=== PATIENT | female | born 1955 | race Caucasian/White ===

== ENCOUNTER 2019-01-06 14:50 | Inpatient (IN) ==
[2019-01-06 15:25] LABS: BLOOD TYPE ARTERIAL; SAMPLE BLOOD
[2019-01-06 15:26] LABS: HCO3-(ACT) 29.5 mmoll (20.0-26.0); METHB 1.3 % (0.0-1.5); O2(CT) 12.9 mL/dL (15.0-23.0); O2HB 90.6 % (95.0-99.0); PO2(98.6) 59 mmHg (60-100); THB 10.1 g/dL (11.5-17.4); pH(98.6) 7.37 (7.35-7.45)
[2019-01-06 15:27] LABS: MODALITY CANNULA
[2019-01-06 15:28] LABS: ALLEN TEST YES
[2019-01-06 15:30] LABS: PCO2(98.6) 56 mmHg (35-45)
[2019-01-06 16:39] LABS: BASO# 0.06 X1000 (0.0-0.2); BASO% 0.8 % (0.0-0.8); EOS# 0.67 X1000 (0.0-0.7); EOS% 9.2 % (0.0-10.0); HEMATOCRIT 36.1 % (37.0-47.0); HEMOGLOBIN 11.1 g/dL (12.0-16.0); IMM GRAN# 0.02 X1000 (0.0-0.04); IMM GRAN% 0.3 % (0.0-0.5); LYMPH# 2.82 X1000 (1.2-3.4); LYMPH% 38.5 % (20.5-51.1); MCH 28.7 PG (27-31); MCHC 30.7 g/dL (33-37); MCV 93.3 FL (81-99); MONO# 1.18 X1000 (0.11-0.59); MONO% 16.1 % (1.7-9.3); MPV 11.7 FL (7.4-10.4); NEUT# 2.57 X1000 (1.4-6.5); NEUT% 35.1 % (42.2-75.2); PLT 219 X1000 (130-400); RBC 3.87 XMIL (4.2-5.4); RDW 14.3 % (11.5-14.5); WBC 7.32 X1000 (4.8-10.8)
[2019-01-06] MEDS ORDERED: DUONEB (A & A) INH ONE (16:39)
[2019-01-06 17:01] LABS: BILIRUBIN URINE NEGATIVE (NEGATIVE); BLOOD URINE NEGATIVE (NEGATIVE); GLUCOSE URINE NEGATIVE (NEGATIVE); KETONE URINE TRACE mg/dL (NEGATIVE); LEUKOCYTES URINE TRACE (NEGATIVE); NITRITE URINE NEGATIVE (NEGATIVE); PROTEIN URINE TRACE mg/dL (NEGATIVE); SP GRAVITY URINE 1.025; UROBILINOGEN URINE NORMAL
[2019-01-06 17:02] LABS: CLARITY CLEAR (CLEAR); COLOR YELLOW
[2019-01-06 17:06] LABS: UR AMPHETAMINES QUAL NONE DETECTED (NONE DETECT); UR BARBITUATES QUAL NONE DETECTED (NONE DETECT); UR BENZODIAZEPIN QUAL PRESUMPTIVE POSITIVE (NONE DETECT); UR COCAINE QUAL NONE DETECTED (NONE DETECT); UR METHADONE QUAL NONE DETECTED (NONE DETECT); UR METHAMPHETAMINE QUAL NONE DETECTED (NONE DETECT); UR OPIATES QUAL NONE DETECTED (NONE DETECT); UR OXYCODONE QUAL NONE DETECTED (NONE DETECT); UR PCP QUAL PRESUMPTIVE POSITIVE (NONE DETECT); UR PROPOXYPHENE QUAL NONE DETECTED (NONE DETECT)
[2019-01-06 17:07] LABS: UR CANNABINOIDS QUAL NONE DETECTED (NONE DETECT); UR TCA QUAL NONE DETECTED (NONE DETECT)
--- NOTE | 2019-01-06 17:16 | Diag Imaging Result Doc PS360 ---
EXAM: CT HEAD W/O CONTRAST HISTORY: ams TECHNIQUE: Images were obtained from the skull base to vertex without IV contrast as per standard protocol. COMPARISON: 10/08/2018 FINDINGS: There is no evidence for hemorrhage, hydrocephalus, mass effect, or fluid collection. There is encephalomalacia left occipital lobe and right cerebellar hemisphere. There is cerebral atrophy. IMPRESSION: Stable encephalomalacia. Mild cerebral atrophy. No acute abnormality. This exam was performed using automated exposure control, adjustment of mA or kV according to patient size, and/or use of iterative reconstruction technique. Electronically signed by Sally Villegas 01/06/2019 5:13 PM
[2019-01-06 17:17] LABS: AGAP 13; ALBUMIN 3.8 g/dL (3.5-5.0); ALKALINE PHOSPHATASE 146 U/L (32-104); BUN 7 mg/dL (8-22); CHLORIDE 103 mmol/L (98-107); COSMO 276; CREATININE 0.6 mg/dL (0.5-0.9); ESTIMATED GFR > 60; GLUCOSE 81 mg/dL (70-104); GOT 33 U/L (10-30); GPT 28 U/L (10-36); MAGNESIUM 1.5 mg/dL (1.5-2.7); POTASSIUM 4.9 mmol/L (3.5-5.1); SODIUM 140 mmol/L (136-145); TCO2 25 mmol/L (25-35); TOTAL PROTEIN 6.4 g/dL (6.3-8.3)
--- NOTE | 2019-01-06 17:17 | Diag Imaging Result Doc PS360 ---
EXAM: CHEST-2 VIEWS HISTORY: short of breath TECHNIQUE: PA and Lateral chest x-ray COMPARISON: 03/23/2018 FINDINGS: There is cardiomegaly.. The pulmonary vasculature is not congested. No infiltrate, effusion, or pneumothorax is appreciated. Postsurgical changes involving the spine and left shoulder. IMPRESSION: No acute cardiopulmonary abnormality is identified. Electronically signed by Sally Villegas 01/06/2019 5:15 PM
[2019-01-06 17:18] LABS: URINE WBC <10 /HPF (<10)
[2019-01-06 17:19] LABS: URINE BACTERIA NEGATIVE /HFP; URINE CAST NONE SEEN /LPF; URINE CRYSTAL NONE SEEN /HPF; URINE EPITHELIAL CELLS <10 /HPF (<10); URINE RBC <10 /HPF (<10); URINE SOURCE CLEAN CATCH; URINE YEAST NONE SEEN /HPF
[2019-01-06] MEDS ORDERED: SOLU-MEDROL IV ONE (17:43)
--- NOTE | 2019-01-06 17:56 | PROVIDER DOCUMENTATION ---
This chart was entered by Alma Delia Braun Scribe, acting as scribe for Rashad Umaña MD. HPI-Respiratory General - General Stated Complaint: SOB Time Seen by Provider: 01/06/19 15:06 Source: patient Allergies/Adverse Reactions: Patient Allergies Allergy/AdvReac Type Severity Reaction Status Date / Time Penicillins Allergy Unknown Unknown Verified 03/23/18 16:36 codeine [Codeine] AdvReac Intermediate NAUSEA/VOMI Verified 03/23/18 16:36 TING Home Medications: Home Medication List Medication Instructions Recorded Confirmed Last Taken Type Lisinopril 10 mg PO DAILY #30 tablet 07/21/13 12/03/17 12/02/17 09:00 Rx Atorvastatin Calcium 40 mg PO QHS 08/01/17 12/03/17 12/02/17 22:00 History Metoprolol Succinate E.r. [Toprol 1 tab PO DAILY 08/01/17 12/03/17 12/02/17 22:00 History Xl] Potassium Chloride E.r. [Micro-K] 1 tab PO DAILY 08/01/17 12/03/17 12/02/17 08:00 History Methocarbamol 500 mg PO BID 10/24/17 12/03/17 12/02/17 15:00 History Montelukast Sodium [Singulair] 10 mg PO HS 10/24/17 12/03/17 12/02/17 22:00 History Ondansetron [Zofran] 4 mg PO Q6H PRN PRN 10/24/17 12/03/17 12/02/17 22:00 History Pregabalin [Lyrica] 75 mg PO BID 10/24/17 12/03/17 12/02/17 15:00 History Clonidine HCl 0.1 mg PO BID 11/26/17 12/03/17 12/02/17 15:00 History Hydroxyzine HCl 25 mg PO QHS 11/26/17 12/03/17 12/02/17 22:00 History Tizanidine HCl 4 mg PO Q12HR 11/26/17 12/03/17 12/02/17 15:00 History Venlafaxine HCl [Venlafaxine HCl 150 mg PO DAILY 11/26/17 12/03/17 12/02/17 15:00 History ER] Alprazolam [Xanax] 0.25 mg PO Q6H PRN PRN #30 tab 11/28/17 12/03/17 12/02/17 22:00 Rx Gabapentin 600 mg PO DAILY 12/03/17 12/03/17 Unknown History Oxycodone HCl 15 mg PO 4XDAY 12/03/17 12/03/17 12/03/17 03:00 History Sertraline HCl 100 mg PO DAILY 12/03/17 12/03/17 Unknown History Omeprazole [Prilosec] 40 mg PO DAILY capsule 12/05/17 Unknown Rx Hydrocodone/APAP 5 mg/325 mg 1 tab PO Q6H PRN PRN #18 tab 03/23/18 Unknown Rx [[place]-5] ATORVAstatin [Lipitor] 40 mg PO DAILY 05/22/18 05/22/18 Unknown History Clonidine [Catapres] 0.1 mg PO BID 05/22/18 05/22/18 Unknown History Hydroxyzine [Atarax] 50 mg PO HS 05/22/18 05/22/18 Unknown History LISINOpril [Prinivil] 10 mg PO DAILY 05/22/18 05/22/18 Unknown History Methocarbamol 500 mg PO BID 05/22/18 05/22/18 Unknown History Metoprolol [Lopressor] 25 mg PO DAILY 05/22/18 05/22/18 Unknown History Montelukast [Singulair] 10 mg PO DAILY 05/22/18 05/22/18 Unknown History Naproxen 500 mg PO BID #20 tablet 05/22/18 Unknown Rx Pantoprazole [Protonix] 40 mg PO DAILY@0700 05/22/18 05/22/18 Unknown History Pregabalin [Lyrica] 75 mg PO BID 05/22/18 05/22/18 Unknown History Methocarbamol 750 mg PO TID PRN PRN #15 tab 12/06/18 Unknown Rx - History of Present Illness-Resp Nature of Presenting Problem: Patient is a 63 year old female who presents to the ED via EMS with shortness of breath, nasal congestion and cough that has been present for 2 weeks. Patient reports she was being seen at [facility] for symptoms. EMS states patient's xray showed the patient has an enlarged heart. Does not report fever. Quality of Pain: reports: tightness Severity in ED: reports: mild Onset/Duration: reports: other (2 weeks) Timing: reports: still present Cough Quality/Degree: reports: moderate, productive cough Episode Frequency: occasional episodes Current Respiratory Medication Therapy: Initiated see nurses note Modifying Factors: improves with: nothing Associated Symptoms: reports: cough, nasal congestion, shortness of breath Similar Symptoms Previously?: Yes Recently seen or treated by another doctor?: Yes Review of Systems - Adult - REVIEW OF SYSTEMS - ADULT Constitutional: reports: no symptoms reported. denies: chills, fever, fatique Eyes: reports: no symptoms reported Ears, Nose, Mouth & Throat: reports: see HPI, sinus problem (congestion). denies: ear pain, nose pain, throat pain Cardiovascular: reports: no symptoms reported Respiratory: reports: see HPI, cough, shortness of breath. denies: wheezing Gastrointestinal: reports: no symptoms reported Genitourinary: reports: no symptoms reported Musculoskeletal: reports: no symptoms reported Integumentary: reports: no symptoms reported Neurological: reports: no symptoms reported Psychiatric: reports: no symptoms reported Endocrine: reports: no symptoms reported Hematologic/Lymphatic: reports: no symptoms reported Allergic/Immunologic: reports: no symptoms reported All Other Systems: Reviewed and Negative Past History - Adult - PAST MEDICAL HISTORY-ADULT Review of Records: reports: Nursing Assessment Review, Medications Reviewed, Social history reviewed & non-contributory. Major Childhood Illnesses: reports: denies history Cardiovascular: reports: HTN, hyperlipidemia Respiratory: reports: denies history Gastrointestinal: reports: denies history Obstetrical/Gynecological: reports: denies history Genitourinary: reports: denies history Musculoskeletal: reports: chronic pain Neurological: reports: CVA Endocrine/Immune: reports: denies history Other Conditions: reports: denies history - PRIOR SURGERIES/PROCEDURES Surgical/Procedure History: reports: hysterectomy, joint replacement, back/neck (pt is on pain medicaitons) - IMMUNIZATION STATUS Childhood Immunizations: See Nurse Assessment Flu Vaccine: See Nurse Assessment - FAMILY HISTORY Family History: reviewed, not pertinent - SOCIAL HISTORY Smoking: denies Substance Use: denies Physical Exam-General - PHYSICAL EXAM-ADULT Initial Vital Signs Reviewed: Yes - CONSTITUTIONAL General Appearance: alert, no apparent distress, other (slow to answer questions). negative: lethargic - HEAD, EARS, NOSE, MOUTH & THROAT HENMT: other (dry mucous membranes.). negative: angioedema, hearing deficit - RESPIRATORY Respiratory: chest non-tender, lungs clear, normal breath sounds. negative: crackles, rhonchi, wheezing - CARDIOVASCULAR Cardiovascular: normal peripheral pulses, regular rate, rhythm. negative: tachycardia, systolic murmur - GASTROINTESTINAL (ABDOMEN) Abdominal Exam: normal bowel sounds, non tender, soft. negative: guarding, rebound - MUSCULOSKELETAL Extremity: non-tender, other (2 + non pitted edema to bilateral lower extremities.). negative: deformity, erythema - SKIN Integumentary: normal color, normal turgor, warm/dry. negative: cyanosis, erythema, jaundice - NEUROLOGIC Neurologic: other (slow to answer questions. slurred speech). negative: aphasia, facial droop - PSYCHIATRIC Psych/Mental Status: oriented x 3, other (slow to answer questions). negative: anxious Progress - PLAN OF CARE/RESULTS Progress/Plan/Lab Results: Vital Signs - 8 hr 01/06/19 15:07 01/06/19 17:05 Temperature 97.7 F Pulse Rate 73 66 Respiratory Rate 20 16 Blood Pressure 124/073 O2 Sat by Pulse Oximetry 100 Laboratory Results - last 24 hr 01/06/19 01/06/19 01/06/19 15:00 16:10 16:10 WBC RBC Hgb Hct MCV MCH MCHC RDW Std Deviation Plt Count MPV Immature Gran % (Auto) Neut % (Auto) Lymph % (Auto) [place] % (Auto) Eos % (Auto) Baso % (Auto) Immature Gran # (Auto) Neut # (Auto) Lymph # (Auto) [place] # (Auto) Eos # (Auto) Baso # (Auto) Specimen Type ARTERIAL Sample Site R RADIAL pH 7.37 pCO2 56 H* pO2 59 L HCO3 29.5 H Base Excess 6.0 H Oxyhemoglobin 90.6 L ABG O2 Sat (Calculated) 12.9 L ABG O2 Saturation 94.0 L ABG Carboxyhemoglobin 2.30 ABG Methemoglobin 1.3 Frandy Test YES A-a O2 Difference 71.0 Total Hemoglobin 10.1 L Lactate 0.60 Liter Flow 2.0 Blood Gas Modality CANNULA FiO2 % 28.0 Sodium Potassium Chloride Carbon Dioxide Anion Gap BUN Creatinine Estimated GFR/1.73 m2 BUN/Creatinine Ratio Glucose POC Glucose Calculated Osmolality Calcium Magnesium Total Bilirubin AST ALT Alkaline Phosphatase Troponin T Fob-I-Foexvedxumu Pept Total Protein Albumin Globulin Albumin/Globulin Ratio TSH 1.30 Urine Source Urine Color Urine Clarity Urine pH Ur Specific [place] Urine Protein Urine Ketones Urine Blood Urine Nitrite Urine Bilirubin Urine Urobilinogen Urine Microscopic RBC Urine WBC Urine Microscopic WBC Ur Epithelial Cells Urine Crystals Urine Bacteria Urine Casts Urine Yeast Urine Glucose Urine Opiates Screen Ur Oxycodone Screen Urine Methadone Screen U Propoxyphene Qual Ur Barbituates Screen Ur Tricyclics Screen Ur Phencyclidine Scrn Ur Amphetamines Screen U Methamphetamines Scrn U Benzodiazepines Scrn Urine Cocaine Screen U Cannabinoids Screen Plasma/Serum Ethyl Alc 01/06/19 01/06/19 01/06/19 16:10 16:10 16:10 WBC 7.32 RBC 3.87 L Hgb 11.1 L Hct 36.1 L MCV 93.3 MCH 28.7 MCHC 30.7 L RDW Std Deviation 14.3 Plt Count 219 MPV 11.7 H Immature Gran % (Auto) 0.3 Neut % (Auto) 35.1 L Lymph % (Auto) 38.5 [place] % (Auto) 16.1 H Eos % (Auto) 9.2 Baso % (Auto) 0.8 Immature Gran # (Auto) 0.02 Neut # (Auto) 2.57 Lymph # (Auto) 2.82 [place] # (Auto) 1.18 H Eos # (Auto) 0.67 Baso # (Auto) 0.06 Specimen Type Sample Site pH pCO2 pO2 HCO3 Base Excess Oxyhemoglobin ABG O2 Sat (Calculated) ABG O2 Saturation ABG Carboxyhemoglobin ABG Methemoglobin Frandy Test A-a O2 Difference Total Hemoglobin Lactate Liter Flow Blood Gas Modality FiO2 % Sodium 140 Potassium 4.9 Chloride 103 Carbon Dioxide 25 Anion Gap 13 BUN 7 L Creatinine 0.6 Estimated GFR/1.73 m2 > 60 BUN/Creatinine Ratio 12 Glucose 81 POC Glucose Calculated Osmolality 276 Calcium 9.0 Magnesium 1.5 Total Bilirubin 0.20 AST 33 H ALT 28 Alkaline Phosphatase 146 H Troponin T Fsy-D-Tqyimxeavbh Pept 244 H Total Protein 6.4 Albumin 3.8 Globulin 3.0 Albumin/Globulin Ratio 1.0 TSH Urine Source Urine Color Urine Clarity Urine pH Ur Specific [place] Urine Protein Urine Ketones Urine Blood Urine Nitrite Urine Bilirubin Urine Urobilinogen Urine Microscopic RBC Urine WBC Urine Microscopic WBC Ur Epithelial Cells Urine Crystals Urine Bacteria Urine Casts Urine Yeast Urine Glucose Urine Opiates Screen Ur Oxycodone Screen Urine Methadone Screen U Propoxyphene Qual Ur Barbituates Screen Ur Tricyclics Screen Ur Phencyclidine Scrn Ur Amphetamines Screen U Methamphetamines Scrn U Benzodiazepines Scrn Urine Cocaine Screen U Cannabinoids Screen Plasma/Serum Ethyl Alc 01/06/19 01/06/19 01/06/19 16:10 16:10 16:10 WBC RBC Hgb Hct MCV MCH MCHC RDW Std Deviation Plt Count MPV Immature Gran % (Auto) Neut % (Auto) Lymph % (Auto) [place] % (Auto) Eos % (Auto) Baso % (Auto) Immature Gran # (Auto) Neut # (Auto) Lymph # (Auto) [place] # (Auto) Eos # (Auto) Baso # (Auto) Specimen Type Sample Site pH pCO2 pO2 HCO3 Base Excess Oxyhemoglobin ABG O2 Sat (Calculated) ABG O2 Saturation ABG Carboxyhemoglobin ABG Methemoglobin Frandy Test A-a O2 Difference Total Hemoglobin Lactate Liter Flow Blood Gas Modality FiO2 % Sodium Potassium Chloride Carbon Dioxide Anion Gap BUN Creatinine Estimated GFR/1.73 m2 BUN/Creatinine Ratio Glucose POC Glucose Calculated Osmolality Calcium Magnesium Total Bilirubin AST ALT Alkaline Phosphatase Troponin T < 0.010 Chf-D-Nooiueguvkf Pept Total Protein Albumin Globulin Albumin/Globulin Ratio TSH Urine Source CLEAN CATCH Urine Color YELLOW Urine Clarity CLEAR Urine pH 5.0 Ur Specific [place] 1.025 Urine Protein TRACE A Urine Ketones TRACE Urine Blood NEGATIVE Urine Nitrite NEGATIVE Urine Bilirubin NEGATIVE Urine Urobilinogen NORMAL Urine Microscopic RBC <10 Urine WBC TRACE A Urine Microscopic WBC <10 Ur Epithelial Cells <10 Urine Crystals NONE SEEN Urine Bacteria NEGATIVE Urine Casts NONE SEEN Urine Yeast NONE SEEN Urine Glucose NEGATIVE Urine Opiates Screen NONE DETECTED Ur Oxycodone Screen NONE DETECTED Urine Methadone Screen NONE DETECTED U Propoxyphene Qual NONE DETECTED Ur Barbituates Screen NONE DETECTED Ur Tricyclics Screen NONE DETECTED Ur Phencyclidine Scrn PRESUMPTIVE POSITIVE A Ur Amphetamines Screen NONE DETECTED U Methamphetamines Scrn NONE DETECTED U Benzodiazepines Scrn PRESUMPTIVE POSITIVE A Urine Cocaine Screen NONE DETECTED U Cannabinoids Screen NONE DETECTED Plasma/Serum Ethyl Alc 01/06/19 16:25 WBC RBC Hgb Hct MCV MCH MCHC RDW Std Deviation Plt Count MPV Immature Gran % (Auto) Neut % (Auto) Lymph % (Auto) [place] % (Auto) Eos % (Auto) Baso % (Auto) Immature Gran # (Auto) Neut # (Auto) Lymph # (Auto) [place] # (Auto) Eos # (Auto) Baso # (Auto) Specimen Type Sample Site pH pCO2 pO2 HCO3 Base Excess Oxyhemoglobin ABG O2 Sat (Calculated) ABG O2 Saturation ABG Carboxyhemoglobin ABG Methemoglobin Frandy Test A-a O2 Difference Total Hemoglobin Lactate Liter Flow Blood Gas Modality FiO2 % Sodium Potassium Chloride Carbon Dioxide Anion Gap BUN Creatinine Estimated GFR/1.73 m2 BUN/Creatinine Ratio Glucose POC Glucose 211 H D Calculated Osmolality Calcium Magnesium Total Bilirubin AST ALT Alkaline Phosphatase Troponin T Eux-G-Tvygnxomiym Pept Total Protein Albumin Globulin Albumin/Globulin Ratio TSH Urine Source Urine Color Urine Clarity Urine pH Ur Specific [place] Urine Protein Urine Ketones Urine Blood Urine Nitrite Urine Bilirubin Urine Urobilinogen Urine Microscopic RBC Urine WBC Urine Microscopic WBC Ur Epithelial Cells Urine Crystals Urine Bacteria Urine Casts Urine Yeast Urine Glucose Urine Opiates Screen Ur Oxycodone Screen Urine Methadone Screen U Propoxyphene Qual Ur Barbituates Screen Ur Tricyclics Screen Ur Phencyclidine Scrn Ur Amphetamines Screen U Methamphetamines Scrn U Benzodiazepines Scrn Urine Cocaine Screen U Cannabinoids Screen Plasma/Serum Ethyl Alc Orders Category Date Time Status Finger Stick Blood Sugar (ED) DIRECTED Care 01/06/19 15:08 Active Nursing- Obtain EKG once Care 01/06/19 15:08 Active Saline Loc NOW Care 01/06/19 15:08 Active CHEST-2 VIEWS [RAD] Stat Exams 01/06/19 15:[address] HEAD W/O CONTRAST [CT] Stat Exams 01/06/19 15:09 Completed ABG [RESP] Routine Lab 01/06/19 15:00 Completed ALCOHOL BLOOD Stat Lab 01/06/19 16:10 Completed CBC WITH ELECTRONIC DIFF [HEME] Stat Lab 01/06/19 16:10 Completed COMPREHENSIVE METABOLIC PANEL [CHEM] Stat Lab 01/06/19 16:10 Completed LACTATE, PLASMA [CHEM] Stat Lab 01/06/19 15:48 Ordered MAGNESIUM [CHEM] Stat Lab 01/06/19 16:10 Completed PRO B-NATRIURETIC PEPTIDE Stat Lab 01/06/19 16:10 Completed TROPONIN T Stat Lab 01/06/19 16:10 Completed TSH Stat Lab 01/06/19 16:[address] W/POSS RFLX CULT [URINALYSIS] Stat Lab 01/06/19 16:10 Completed URINE CULTURE [RM] Routine Lab 01/06/19 17:19 [address]UG S[address]EN [address] Stat Lab 01/06/19 16:10 Completed Albuterol 2.5MG/Ipratrop 0.5MG [Duoneb (A & A)] Med 01/06/19 16:39 Discontinued 3 ml INH NOW ONE Methylprednisolone Sod Succ [Solu-Medrol] Med 01/06/19 17:43 Discontinued 125 mg IV NOW ONE Aerosol Treatments Routine Oth 01/06/19 16:39 Completed Aerosol Treatments Stat Oth 01/06/19 16:39 Completed EKG [EKG] Stat Ther 01/06/19 15:08 Ordered Result Diagrams: 01/06/19 16:10 01/06/19 16:10 - REASSESSMENT Reassessment #1 Time Reassessed: 17:43 Status: improving (Given IVF, O2 and duonebs and solumedrol.) - EKG 1 Time of EKG reading by physician:: 16:18 EKG Read and Signed by:: Rashad Umaña EKG Interpretation (*Must complete 3 of following elements*): Normal Rate: 64 Rhythm: normal sinus rhythm [place]: normal QRS: normal NM Interval: normal ST Wave: normal Comments: normal ECG - XRAY 1 XRAY Study: Chest Impression: See EMR Report ( EXAM: CHEST-2 VIEWS HISTORY: short of breath TECHNIQUE: PA and Lateral chest x-ray COMPARISON: 03/23/2018 FINDINGS: There is cardiomegaly.. The pulmonary vasculature is not congested. No infiltrate, effusion, or pneumothorax is appreciated. Postsurgical changes involving the spine and left shoulder. IMPRESSION: No acute cardiopulmonary abnormality is identified. Electronically signed by Sally Villegas 01/06/2019 5:15 PM 01/06/19 1718 Interpreting Physician: Sally Villegas MD Dictated Date/Time: 01/06/19 [id number] cc: Rashad Umaña MD; Bryn Guzman MD) - CT/MRI 1 CT Study: Head Impression: See EMR Report (EXAM: CT HEAD W/O CONTRAST HISTORY: ams TE CHNIQUE: Images were obtained from the skull base to vertex without IV contrast as per standard protocol. COMPARISON: 10/08/2018 FINDINGS: There is no evidence for hemorrhage, hydrocephalus, mass effect, or fluid collection. There is encephalomalacia left occipital lobe and right cerebellar hemisphere. There is cerebral atrophy. IMPRESSION: Stable encephalomalacia. Mild cerebral atrophy. No acute abnormality. This exam was performed using automated exposure control, adjustment of mA or kV according to patient size, and/or use of iterative reconstruction technique. Electronically signed by Sally Villegas 01/06/2019 5:13 PM 01/06/19 1713 Interpreting Physician: Sally Villegas MD Dictated Date/Time: 01/06/19 1711 cc: Rashad Umaña MD; Bryn Guzman MD) - CONSULTS/PCP/HOSPITALIST Notification #1 *Consult/PCP/Hospitalist*: [place] Time Discussed: 17:43 Consult Disposition: Will see in ED Departure - Departure Date of Disposition Decision: 01/06/19 Time of Disposition Decision: 17:44 DIAGNOSIS: Compensated respiratory acidosis, Hypercarbia, Hypoxemia, Benzodiazepine dependence, continuous, Tobacco use disorder, Cardiomegaly Altered mental status Qualifiers: Altered mental status type: somnolence Qualified Code(s): R40.0 - Somnolence Disposition: ADMITTED INPATIENT 09 Certified Medical Emergency: Emergent Condition: Fair Referrals and Follow-Ups: Bryn Guzman MD [Primary Care Provider] - - Critical Care Note This patient required my direct & personal management of CC.: No Attestation - Physician/ ZULLY Attestation Patient care was provided by Advanced Practice Provider:: No The physician spent face to face time with patient:: Yes Advanced Practice Provider documentation review:: Supervising physician onsite and consulted in the evaluation and care of this patient. The physician did have a face to face encounter with the patient. This chart was documented by the indicated scribe, (Alma Delia Braun Scribe) and accurately reflects the services I performed and decisions made by , Rashad Umaña MD, as attested by the provider's signature.
[2019-01-06] MEDS ORDERED: ZOFRAN IV PRN (18:14)
[2019-01-06] MEDS ORDERED: TYLENOL PO PRN (18:14)
[2019-01-06] MEDS ORDERED: NORCO-5 PO PRN (18:14)
[2019-01-06] MEDS ORDERED: LOVENOX SUBQ SCH (18:15)
--- NOTE | 2019-01-06 18:17 | EKG Report ---
Test Performed on : 01/06/2019 4:18:14 PM Test Reason : AMS Blood Pressure : / mmHG Vent. Rate : 064 BPM Atrial Rate : 064 BPM P-R Int : 154 ms QRS Dur : 084 ms QT Int : 432 ms P-R-T Axes : 028 006 011 degrees QTc Int : 445 ms Normal sinus rhythm. Normal ECG When compared with ECG of 04-DEC-2017 13:21, QT has lengthened Unconfirmed Result
--- NOTE | 2019-01-06 19:07 | HISTORY AND PHYSICAL ---
CHIEF COMPLAINT: Shortness of breath. HISTORY OF PRESENT ILLNESS: The patient is a 63-year-old female who presented to the emergency department with the initial complaints of shortness of breath, nasal congestion and coughing. She states that she was seen approximately 2 weeks ago at [facility] for similar symptoms. She notes that at that time she was told that she had a large heart on x-ray. The ER workup was essentially normal, she had a CT of the head, chest x-ray and lab work. Upon my arrival to the ER the patient seems to have a completely different set of complaints. She currently denies any cough, shortness of breath, fevers, chills. Denies any confusion or headaches. She states that she came to the ER because she is having swelling in her leg that has been several months since she had her hip surgery, and that she has been waiting on her hip replacement for the past 9 months. ALLERGIES: Penicillin, codeine. MEDICATIONS: I do not have a current active medication list. The patient apparently takes benzodiazepines and pain medication at home, and she does have a history of taking blood pressure medicine lisinopril and metoprolol. The patient does not have an accurate list with her. PAST MEDICAL HISTORY: Hypertension, chronic anxiety, chronic hip pain with multiple surgeries, high cholesterol. PAST SURGICAL HISTORY: The patient has had several surgeries on her left hip to include hip replacement, which apparently had become infected and subsequently was removed. She has not had a revision yet. Per the patient she is still waiting for [place] to get this all set up. REVIEW OF SYSTEMS: Quite difficult to ascertain as it does appear to be different now than when she initially arrived to the ER. Currently on my examination she is only complaining of swelling in her left lower extremity that she notes has been present for several months and gets worse and better at times. Denies any fevers or chills currently. Denies any cough, congestion or shortness of breath. Denies any chest pain or palpitation. Denies any dysuria, frequency, urgency, hesitancy, polyuria or polydipsia. Denies skin rashes, weight loss or weight gain, although does note that she does not check her weight as she is essentially unable to get up. SOCIAL HISTORY: The patient denies smoking and denies alcohol. PHYSICAL EXAMINATION: VITAL SIGNS: Reviewed. Temperature is 97 degrees, pulse 73, respiratory 20, blood pressure is 124/73, oxygen saturation is 100%. GENERAL: The patient is awake and alert, currently. She appears to be in no respiratory distress. HEENT: Normocephalic. NECK: Supple. CARDIOVASCULAR: Regular rate. CHEST: Appears clear, nonlabored. No wheezing. ABDOMEN: Soft and nondistended. EXTREMITIES: Moves all extremities. NEUROLOGIC: No changes. ASSESSMENT: 1. Report of cardiomegaly. 2. Hypertension. 3. High cholesterol. 4. History of cerebrovascular accident. 5. Hypercapnia, appears to be more chronic as she appears to be compensated. 6. Chronic tobacco abuse, although the patient states she is not currently smoking. 7. Edema. 8. Dislocated left hip status post surgical repair and then revision of surgical repair due to infection. PLAN: We will continue the patient in the hospital. We will check an echocardiogram. Recheck laboratories in the morning [*] is normal hopefully she can be discharged home as she mainly needs to follow up with Orthopedics in [place] to repair her malfunction of hip. Unsure if medication overusage created some her shortness of breath. We will follow. cc: Anand Fisher MD
[2019-01-07 05:42] LABS: HEMATOCRIT 33.9 % (37.0-47.0); HEMOGLOBIN 10.5 g/dL (12.0-16.0); MCH 28.3 PG (27-31); MCV 91.4 FL (81-99); MPV 11.1 FL (7.4-10.4); RBC 3.71 XMIL (4.2-5.4); RDW 13.3 % (11.5-14.5); WBC 3.32 X1000 (4.8-10.8)
[2019-01-07 06:08] LABS: AGAP 13; ALBUMIN 3.5 g/dL (3.5-5.0); ALKALINE PHOSPHATASE 131 U/L (32-104); BUN 8 mg/dL (8-22); CALCIUM 8.5 mg/dL (8.8-10.2); CHLORIDE 100 mmol/L (98-107); COSMO 281; CREATININE 0.6 mg/dL (0.5-0.9); ESTIMATED GFR > 60; GLUCOSE 199 mg/dL (70-104); GOT 21 U/L (10-30); GPT 24 U/L (10-36); MAGNESIUM 1.3 mg/dL (1.5-2.7); POTASSIUM 3.8 mmol/L (3.5-5.1); SODIUM 139 mmol/L (136-145); TCO2 26 mmol/L (25-35); TOTAL PROTEIN 6.4 g/dL (6.3-8.3)
--- NOTE | 2019-01-07 11:07 | Extremity Venous Study ---
EXAM: Venous U/S Bilateral Legs - 01/07/2019 HISTORY: edema TECHNIQUE: Bilateral lower extremity Doppler venous ultrasound COMPARISON: None. FINDINGS: The deep veins of the bilateral lower extremities demonstrate flow and compressibility. There are no filling defects identified. IMPRESSION: No evidence of deep venous thrombosis in either lower extremity. Electronically signed by Manny Viramontes 01/07/2019 11:05 AM
[2019-01-07 13:46] VITALS: BP 147/85
--- NOTE | 2019-01-07 14:19 | ECHO REPORT ---
ORDER DATE: 01/07/2019 INTERPRETING PHYSICIAN: Dr. Fredy Cline. ECHOCARDIOGRAPHIC MEASUREMENTS: 1. Interventricular septum: 1.1 cm. 2. Left ventricular posterior wall: 1.0 cm. 3. Diastolic diameter: 4.5 cm. 4. Left atrium: 2.8 cm. 5. Aorta: 3 cm. SUMMARY OF THE 2-DIMENSIONAL IMAGIN. Mitral valve was normal. 2. Tricuspid valve was normal. 3. Aortic valve leaflets were trileaflet. 4. Pulmonic valve not well visualized. 5. Normal left ventricular cavity size. Optison was used to assess left ventricular systolic function. Estimated ejection fraction of 65-70%. 6. There is mild mitral regurgitation. 7. Mild tricuspid regurgitation. Peak velocity across the tricuspid valve less than 2 m/sec. 8. Peak velocity across the aortic valve less than 2 m/sec. By Doppler studies, there is no aortic stenosis or regurgitation. 9. There is no pericardial effusion or obvious intracardiac mass or thrombus seen. cc: MD Anand Guzman MD
[2019-01-07] MEDS ORDERED: MAG-OX PO ONE (15:17)
--- NOTE | 2019-01-08 14:28 | DISCHARGE SUMMARY ---
ADMISSION DATE: 01/06/2019 DISCHARGE DATE: 01/07/2019 DISCHARGE DIAGNOSES: 1. Hypertension improved. 2. High cholesterol, stable. 3. History of CVA, stable. 4. Chronic tobacco abuse. 5. Chronically dislocated left hip, status post surgical repair. 6. Removal of device due to infection. CONSULTATIONS: None. PROCEDURES: None. BRIEF HOSPITAL COURSE: Patient is a 63-year-old female who presented to the hospital. She was watched overnight. Blood pressures were stable. She is currently awake, alert, and oriented. The patient states that she did not overtake her medications. She simply was super tired and sleepy, and that is the reason she was confused and disoriented in the ER. Regardless, all of these symptoms have resolved. Therefore, we will discharge her home. DISPOSITION: Again, we discussed with patient the perils of pain medication, benzodiazepine, and smoking, etc. She will follow up outpatient with her surgeon of choice. TIME SPENT: Greater than 30 minutes was spent in total care. cc: Anand Fisher MD
== END 2019-01-07 15:48 | disposition home or self-care (01) | DRG 204 ==
LOC: SUPCPDRO → P.ED 14:50 → P.MEDSURG 21:57
PROVIDERS: ATTEND Family Medicine
CPT/HCPCS: 70450; 71020; 71046; 80053; 80104; 80301; 80305; 80307; 80320; 81001; 82055; 82805; 82948; 83605; 83735; 83880; 84443; 84484; 85025; 85027; 85379; 87088; 93005; 93306; 93970; 94640; 96372; 96374; 99285; A9270; C8929; G0431; G0434; G0477; G0480; G6040; J1650; J2930; Q9957; XXXXX